=== PATIENT | female | born 1990 | race African-American/Black ===

== ENCOUNTER 2019-06-14 10:27 | Emergency (ER) | payer OTHER ==
[~2019-06-14] VITALS: Ht 162.6 cm; Wt 81.6 kg
[2019-06-14 11:07] VITALS: BP 116/74
[2019-06-14] MEDS ORDERED: IBUPROFEN 400 MG TABLET. PO ONE (11:30)
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
[2019-06-14] MEDS ORDERED: IBUP-1060 PO (12:35)
[2019-06-14] MEDS ORDERED: TRAM-48 PO (12:35)
[2019-06-14] MEDS ORDERED: CYCL10TA2 PO (12:35)
== END 2019-06-14 12:46 | disposition home or self-care (01) ==
LOC: ER 10:27
DX: S23.429A Unspecified sprain of sternum, initial encounter (principal); V43.52XA Car driver injured in collision with other type car in traffic accident, initial encounter; Y93.89 Activity, other specified; Y92.488 Other paved roadways as the place of occurrence of the external cause; Y99.8 Other external cause status
CPT/HCPCS: 71120; 81025; 99284-25

== ENCOUNTER 2019-06-23 13:53 | Emergency (ER) | payer OTHER ==
[~2019-06-23 13:53] MED LIST: CYCL10TA2 PO; IBUP-1060 PO; TRAM-48 PO
== END 2019-06-23 14:45 | disposition left against medical advice (07) ==
LOC: ER 13:53
DX: R51 Headache (principal); Z53.21 Procedure and treatment not carried out due to patient leaving prior to being seen by health care provider